=== PATIENT | female | born 1995 | race Caucasian/White ===

== ENCOUNTER 2025-05-06 19:14 | Emergency (ER) | payer BC, SELFPAY ==
[2025-05-06 20:18] LABS: Glucose, Urine (Dipstick) Negative (Negative); Leukocyte Negative (Negative); Protein, Urine (Dipstick) 100 mg/dL (Neg-Trace); Specific Gravity, Urine 1.020 (1.005-1.030)
[2025-05-06 20:32] LABS: CAUTI Indications for Culture Pelvic or flank pain; WBC/HPF 0-3 HPF (0-3)
[2025-05-06 20:33] LABS: Urine Culture Reflex No No
== END 2025-05-06 21:20 | disposition home or self-care (01) ==
LOC: NAV ERS 19:14
DX: B34.9 Viral infection, unspecified (principal); H65.93 Unspecified nonsuppurative otitis media, bilateral
CPT/HCPCS: 81001; 87428; 99283